=== PATIENT | male | born 1995 | race Two or more races ===

== ENCOUNTER 2021-12-28 18:45 | Emergency (ER) | payer OTHER ==
[~2021-12-28] VITALS: Ht 188 cm; Wt 97.5 kg
[2021-12-28 19:40] VITALS: BP 147/85
[2021-12-28] MEDS: ACETAMINOPHEN 325 MG TAB PO ONE (21:32)
== END 2021-12-28 21:39 | disposition home or self-care (01) ==
LOC: ER 18:45
DX: S09.90XA Unspecified injury of head, initial encounter (principal); M25.511 Pain in right shoulder; W01.0XXA Fall on same level from slipping, tripping and stumbling without subsequent striking against object, initial encounter; W22.8XXA Striking against or struck by other objects, initial encounter; Y99.0 Civilian activity done for income or pay; Y92.69 Other specified industrial and construction area as the place of occurrence of the external cause
CPT/HCPCS: 70450; 73030